=== PATIENT | male | born 1930 | race Caucasian/White ===

== ENCOUNTER 2016-12-24 10:57 | Inpatient (IN) ==
[2016-12-24 11:30] LABS: MANUAL DIFF NEEDED? NO
[2016-12-24 11:31] LABS: BASO% 0.5 % (0.0-0.8); EOS# 0.09 X1000 (0.0-0.7); EOS% 0.7 % (0.0-10.0); HEMATOCRIT 28.2 % (42.0-52.0); HEMOGLOBIN 8.8 g/dL (14.0-18.0); IMM GRAN# 0.04 X1000 (0.0-0.04); IMM GRAN% 0.3 % (0.0-0.5); LYMPH# 1.12 X1000 (1.2-3.4); LYMPH% 8.2 % (20.5-51.1); MCH 29.2 PG (27-31); MCHC 31.2 g/dL (33-37); MCV 93.7 FL (81-99); MONO% 6.6 % (1.7-9.3); MPV 9.1 FL (7.4-10.4); NEUT% 83.7 % (42.2-75.2); PLT 420 X1000 (130-400); RBC 3.01 XMIL (4.7-6.1)
--- NOTE | 2016-12-24 12:20 | Diag Imaging Result Document ---
PROCEDURE NAME: FLAT/UPRIGHT ABD/1 VIEW CHEST - 12/24/2016 FRONTAL CHEST X-RAY AND TWO VIEWS OF THE ABDOMEN: COMPARISON: None. FINDINGS: There are sternotomy wires. Lung volumes are low. There is some patchy atelectasis or infiltrate in the lateral left costophrenic angle. Otherwise, the lungs are clear. There are surgical clips in the prostate bed. No bowel obstruction or free air. No abnormal calcifications. There is abnormal sclerosis of the right femoral head. No fracture or dislocation. IMPRESSION: 1. Trace atelectasis or infiltrate in the lateral left lung base. 2. Sclerosis in the right femoral head. This suggests avascular necrosis here. No fracture or complication.
[2016-12-24 12:23] LABS: AGAP 10; ALBUMIN 3.5 g/dL (3.5-5.0); ALKALINE PHOSPHATASE 69 U/L (32-122); AMYLASE 49 U/L (20-200); BUN 30 mg/dL (8-22); CHLORIDE 100 mmol/L (98-107); COSMO 281; GOT 18 U/L (10-34); GPT 11 U/L (10-44); LIPASE 42 U/L (13-60); MAGNESIUM 2.2 mg/dL (1.5-2.7); POTASSIUM 4.5 mmol/L (3.5-5.1); SODIUM 137 mmol/L (136-145); TCO2 26 mmol/L (25-35)
[2016-12-24 12:30] LABS: CALCIUM 12.2 mg/dL (8.8-10.2)
[2016-12-24] MEDS ORDERED: NS 1,000 ML IV ONE (12:42)
[2016-12-24] MEDS ORDERED: LASIX IV ONE (12:42)
--- NOTE | 2016-12-24 13:18 | PROVIDER DOCUMENTATION ---
This chart was entered by Svitlana Spivey Scribe, acting as scribe for Wesley Harris MD. HPI-General Adult - General Chief Complaint: Constipation Stated Complaint: WEKNESS Time Seen by Provider: 12/24/16 11:05 Source: patient, family Allergies/Adverse Reactions: Patient Allergies Allergy/AdvReac Type Severity Reaction Status Date / Time No Known Allergies Allergy Verified 12/24/16 11:06 Home Medications: Home Medication List Medication Instructions Recorded Confirmed Last Taken Type Unobtainable [Home Meds 12/24/16 12/24/16 Unknown History Unobtainable] - History of Present Illness -Gen Adult Nature of Presenting Problems: Pt is a 86 yom presents to er with as historian reports multiple complaints. Complains of fatigued,weakness, poor appetite since Wednesday and constipation since Wednesday. Reports been giving Boost. 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 Reports pt complains of constant right flank pain. Location of Pain/Injury: reports: generalized Severity: reports: moderate Onset/Duration: reports: last week Timing: reports: still present Similar Symptoms Previously?: No Recently seen or treated by another doctor?: Yes Review of Systems - Adult - REVIEW OF SYSTEMS - ADULT Constitutional: reports: fatique. denies: chills, night sweats, weight gain, weight loss Eyes: reports: no symptoms reported Ears, Nose, Mouth & Throat: denies: ear pain, sinus problem, throat pain Cardiovascular: denies: chest pain, irregular heart rate, orthopnea, syncope Respiratory: denies: cough, shortness of breath, wheezing Gastrointestinal: reports: abdominal pain, constipation, poor appetite. denies : diarrhea, nausea, vomiting Genitourinary: reports: flank pain. denies: dysuria, discharge, frequency, frequent UTI's, hematuria, hesitency, incontinence, urinary retention, urgency Musculoskeletal: reports: muscle weakness. denies: bone pain, back pain, joint pain, joint swelling, neck pain Integumentary: denies: hives, itching, mole changes, nail changes, skin sores/ ulcer, skin thickening Neurological: denies: ataxia, numbness, paresthesia, seizure, slurred speech, syncope, tremors Psychiatric: reports: no symptoms reported Endocrine: reports: no symptoms reported Hematologic/Lymphatic: reports: no symptoms reported Allergic/Immunologic: reports: no symptoms reported All Other Systems: Reviewed and Negative Past History - Adult - PAST MEDICAL HISTORY-ADULT Review of Records: reports: Nursing Assessment Review, Medications Reviewed Major Childhood Illnesses: reports: denies history Cardiovascular: reports: HTN, other (cardiac valve) - IMMUNIZATION STATUS Childhood Immunizations: See Nurse Assessment Flu Vaccine: See Nurse Assessment - FAMILY HISTORY Family History: reviewed, not pertinent - SOCIAL HISTORY Smoking: denies Physical Exam-General - PHYSICAL EXAM-ADULT Initial Vital Signs Reviewed: Yes - CONSTITUTIONAL General Appearance: alert, lethargic. negative: appears well - EYES Eyes: PERRL/EOMI - HEAD, EARS, NOSE, MOUTH & THROAT HENMT: moist mucous membranes, pharynx normal - NECK Neck: non-tender - RESPIRATORY Respiratory: chest non-tender, lungs clear, normal breath sounds, no pleuratic chest pain, no respiratory distress, no accessory muscle use - CARDIOVASCULAR Cardiovascular: regular rate, rhythm - GASTROINTESTINAL (ABDOMEN) Abdominal Exam: non tender, soft, no organomegaly, no pulsatile mass - GENITOURINARY Rectal Exam: black stool - MUSCULOSKELETAL Back Exam: normal inspection, no vertebral tenderness, CVA tenderness (ttp) Extremity: normal range of motion, non-tender, pedal edema (1+ edema) - SKIN Integumentary: normal turgor, warm/dry, pallor - PSYCHIATRIC Psych/Mental Status: normal mood/affect, normal thought content, normal thought process, oriented x 3 Progress - PLAN OF CARE/RESULTS Progress/Plan/Lab Results: Vital Signs - 8 hr 12/24/16 11:00 Temperature 98 F Pulse Rate 81 Respiratory Rate 18 Blood Pressure 144/63 O2 Sat by Pulse Oximetry 98 Orders Category Date Time Status Saline Loc DIRECTED Care 12/24/16 11:11 Active NPO Diet 12/24/16 11:11 Active FLAT/UPRIGHT ABD/1 VIEW CHEST [RAD] Stat Exams 12/24/16 11:11 Ordered AMYLASE [CHEM] Stat Lab 12/24/16 11:11 Ordered CBC WITH ELECTRONIC DIFF [HEME] Stat Lab 12/24/16 11:11 Ordered COMPREHENSIVE METABOLIC PANEL [CHEM] Stat Lab 12/24/16 11:11 Ordered LIPASE [CHEM] Stat Lab 12/24/16 11:11 Ordered MAGNESIUM [CHEM] Stat Lab 12/24/16 11:11 Ordered PRO B-NATRIURETIC PEPTIDE Stat Lab 12/24/16 11:[address] W/POSS RFLX CULT [URINALYSIS] Stat Lab 12/24/16 11:11 Uncollected Result Diagrams: 12/24/16 11:25 12/24/16 11:25 - XRAY 1 XRAY: Bilateral XRAY Study: Chest Impression: Abnormal (trace atelectasis or infiltrate in the lateral left lung base; sclerosis in the right femoral head. this suggest avascular necrosis. no fx or complication) - CT/MRI 1 CT Study: Abdomen, Pelvis, other (pulm arteries) Impression: Abnormal (large mid abdominal masses, the left compressiong the IVC and invading the psoas. Lympohoma, GIST or metastatic disease would be in the differential. LLL and Lingular atelecasis no pe.) 2 CT Study: Head Impression: Abnormal (chronic ischemic changes. NAD) - CONSULTS/PCP/HOSPITALIST Notification Time Discussed: 14:32 Reason/Comments: Admit to Dr. Mathews (to [facility]) Departure - Departure Time of Disposition Decision: 14:15 DIAGNOSIS: Anemia Qualifiers: Anemia type: unspecified type Qualified Code(s): D64.9 - Anemia, unspecified GI bleed Qualifiers: GI bleed type/associated pathology: melena Qualified Code(s): K92.1 - Melena Abdominal mass Qualifiers: Abdominal location: generalized Qualified Code(s): R19.07 - Generalized intra- abdominal and pelvic swelling, mass and lump Disposition: ADMITTED INPATIENT 09 Certified Medical Emergency: Emergent Condition: Stable Referrals and Follow-Ups: Omar Neilsen MD [Primary Care Provider] - This chart was documented by the indicated scribe, (Svitlana Spivey Scribe) and accurately reflects the services I performed and decisions made by me, Wesley Harris MD, as attested by the provider's signature.
--- NOTE | 2016-12-24 13:35 | Diag Imaging Result Document ---
PROCEDURE NAME: HEAD W/O CONTRAST - 12/24/2016 CT OF THE HEAD WITHOUT CONTRAST: FINDINGS: There are calcifications in the vertebral and internal carotid arteries bilaterally. There are calcifications in the globus pallidus bilaterally. There are patchy lucencies in the periventricular and subcortical white matter of both hemispheres. There is no evidence of bleed, mass effect, or abnormal extra-axial fluid collection. There are no acute bony abnormalities. The paranasal sinuses are clear. IMPRESSION: Chronic microvascular changes. No evidence of acute intracranial disease.
[2016-12-24 14:07] LABS: BILIRUBIN URINE NEGATIVE (NEGATIVE); BLOOD URINE NEGATIVE (NEGATIVE); CLARITY CLEAR (CLEAR); COLOR YELLOW; GLUCOSE URINE NEGATIVE (NEGATIVE); LEUKOCYTES URINE TRACE (NEGATIVE); NITRITE URINE NEGATIVE (NEGATIVE); PH URINE 6.5; PROTEIN URINE TRACE mg/dL (NEGATIVE); SP GRAVITY URINE 1.015; UROBILINOGEN URINE NORMAL
--- NOTE | 2016-12-24 14:11 | Diag Imaging Result Document ---
PROCEDURE NAME: ABD/PELVIS/PULM ARTERIES - 12/24/2016 CT OF THE CHEST WITH INTRAVENOUS CONTRAST: FINDINGS: There are no filling defects in the pulmonary arteries. There is apparent atelectasis versus bronchopneumonia in the left lower lobe and to some extent in the lingula. There are some scattered calcified granulomata. There are apparent cysts in the liver. There is no evidence of significant adenopathy or abnormal fluid collections. IMPRESSION: No evidence of pulmonary emboli. Atelectasis as described. CT OF THE ABDOMEN WITH INTRAVENOUS CONTRAST AND CLARITY: FINDINGS: There are multiple apparent cysts in the liver which are presumably congenital. The spleen is unremarkable with a few granulomata. The adrenal glands are not enlarged. The kidneys are without evidence of hydronephrosis. There is a lobulated soft tissue mass which engulfs the inferior vena cava just below the level of the renal veins and abuts the abdominal aorta over 180 degrees of its circumference on the right. There are a number of periaortic nodes separate from this seen on both sides. This mass is at least 12.7 cm in diameter and compresses several adjacent small bowel loops. It is also in contact with the head of the pancreas. This does not appear to be arising from the pancreas. In superior/inferior dimension, it is at least 10.4 cm. This may invade the right psoas muscle. In addition, there is a 2nd soft tissue mass in the mesentery on the left with somewhat heterogeneous density and with some large feeding vessels seen anteriorly. This measures 7.9 x 6.7 x 8 cm and is slightly more rounded in contour than the right- sided mass. It also slightly denser and more uniformly enhancing. CT OF THE PELVIS WITH INTRAVENOUS CONTRAST: FINDINGS: There is diverticulosis in the sigmoid colon without evidence of active diverticulitis. There is some presacral edema, and there may be a small amount of free fluid. There has been previous prostatectomy. The urinary bladder is not distended. No significant adenopathy is present. There is some sclerotic density in the right femoral head. This may be due to previous osteonecrosis. There are degenerative changes in the lumbar spine. There has been previous sternotomy. IMPRESSION: Bilateral soft tissue masses in the abdomen as described. This may be a result of metastatic adenopathy but the possibility of a primary gastrointestinal stromal tumor or tumors or even lymphoma cannot be excluded. This would be an unusual presentation of metastatic prostate carcinoma, however, it cannot be entirely excluded.
[2016-12-24 14:12] LABS: URINE CULTURE PL NEEDED? YES; URINE EPITHELIAL CELLS <10 /HPF (<10); URINE SOURCE CLEAN CATCH; URINE WBC <10 /HPF (<10)
[2016-12-24 14:16] LABS: OCCULT BLOOD 1 POSITIVE (NEGATIVE)
--- NOTE | 2016-12-24 17:06 | HISTORY AND PHYSICAL ---
PRIMARY CARE PHYSICIAN: Dr. Omar Nielsen. CHIEF COMPLAINT: Abdominal pain, constipation. HISTORY OF PRESENT ILLNESS: This is an 86-year-old male with a history of hypertension who presents complaining of fatigue, weakness, poor appetite for 6 days, and constipation for 3 days, along with right flank pain that radiates around to his right lower quadrant. He is nonspecific regarding any alleviating or aggravating factors. He denies fever, chills, night sweats, vomiting, diarrhea, constipation. He does state that he has been seen by his primary care physician twice last week as well as his atmospheric physicist and urologist with no reason for this pain found. He was found to have a white count of 13.63, with a hemoglobin of 8.[address] revealed atelectasis versus bronchopneumonia in the left lower lobe. PAST MEDICAL HISTORY: Hypertension. Heart valve replacement. Prostate cancer. PAST SURGICAL HISTORY: Valve replacement. Prostatectomy. SOCIAL HISTORY: He denies alcohol, tobacco, or illicit drug use. ALLERGIES: No known drug allergies. HOME MEDICATIONS: will bring medications to the hospital and a list of may be obtained. REVIEW OF SYSTEMS: A 14 point review of systems is discussed with the patient with pertinent positives being stated in the HPI. He denied chest pain, palpitations, dizziness, syncope, any black or bloody vomitus, black or bloody stools, shortness of breath, PND, orthopnea, diarrhea, nausea, vomiting, hematuria, dysuria. PHYSICAL EXAMINATION: GENERAL: This is an 86-year-old man who is lying in the bed, in no distress. VITAL SIGNS: Blood pressure is 134/74, with a heart rate of 85, respirations are 18, temperature is 98 degrees with oxygen saturations of 98% on room air. HEENT: Head is normocephalic, atraumatic. Pupils equal, round, react to light. EOMs are intact. Sclerae are anicteric. Mucous membranes are moist. NECK: Supple with trachea midline. CARDIOVASCULAR: Regular rate and rhythm. S1 and S2 appreciated. PULMONARY: Breath sounds are clear with no increased work of breathing noted. GASTROINTESTINAL: Abdomen is soft, nontender, nondistended, with bowel sounds in all 4 quadrants. EXTREMITIES: No clubbing or cyanosis. He does have trace lower extremity edema. Pulses palpable x4. NEUROLOGIC: He is alert and oriented. DIAGNOSTIC DATA: WBC is 13.6, with hemoglobin 8.8, hematocrit 28.2, and platelets of 420,000. Sodium is 137, potassium 4.5, BUN 30, creatinine 1, with a glucose of 120. Calcium is 12.2. Occult stool is positive. Radiology: Abdominal x-ray reveals trace atelectasis or infiltrate in the lateral left lung base, sclerosis to the right femoral head suggesting avascular necrosis. No fracture or complication. CT of the abdomen and pelvis revealed no evidence of pulmonary embolism, atelectasis in the left lower lobe versus bronchopneumonia. CT of the abdomen and pelvis revealed bilateral soft tissue masses in the abdomen, one which engulfs the inferior vena cava just below the level of the renal veins and abuts the abdominal aorta over 180 degrees of its circumference on the right, with a number of periaortic nodes on both sides. The mass is 12.7 cm in diameter and compresses several adjacent small-bowel loops. It is also in contact with the head of the pancreas although it does not seem to appear arising from the pancreas. It may invade the right psoas muscle. There is a 2nd soft tissue mass in the mesentery on the left with somewhat heterogeneous density, with some large feeding vessels seen anteriorly. It measures 7.9 x 6.7 x 8 cm. ASSESSMENT AND PLAN: 1. Left lower lobe atelectasis versus bronchopneumonia. We will obtain blood cultures. We will give Levaquin. 2. Leukocytosis. As stated above, blood cultures will be obtained, urine culture is pending. 3. Bilateral soft tissue masses in the abdomen. We will get Surgery evaluation. 4. Hypercalcemia. 5. Anemia. The patient does have guaiac-positive stools. We have no labs to refer to other than labs in 2013. We will trend hemoglobin and hematocrit. 6. History of prostate cancer status post prostatectomy. Aware. This is followed by Dr. Wright. 7. Further treatment pending hospital course. Dictated by SADIQ Mathew for Russell Mathews MD cc: SADIQ Mathew MD
[2016-12-24] MEDS ORDERED: ZOFRAN ONE (17:16)
[2016-12-24] MEDS ORDERED: MORPHINE ONE (17:16)
[2016-12-24] MEDS ORDERED: ZOFRAN IV ONE (17:22)
[2016-12-24] MEDS ORDERED: MORPHINE IV ONE (17:22)
[2016-12-24] MEDS: LEVAQUIN 500 MG/D5W 500 MG/100 ML IVPB IV SCH (23:02)
[2016-12-24] MEDS ORDERED: ZOFRAN IV PRN (23:16)
[2016-12-25 06:34] LABS: MANUAL DIFF NEEDED? NO
[2016-12-25 06:45] LABS: BASO% 0.3 % (0.0-0.8); EOS# 0.04 X1000 (0.0-0.7); EOS% 0.3 % (0.0-10.0); HEMATOCRIT 27.4 % (42.0-52.0); HEMOGLOBIN 8.6 g/dL (14.0-18.0); IMM GRAN# 0.04 X1000 (0.0-0.04); IMM GRAN% 0.3 % (0.0-0.5); LYMPH# 1.44 X1000 (1.2-3.4); LYMPH% 10.4 % (20.5-51.1); MCH 29.7 PG (27-31); MCHC 31.4 g/dL (33-37); MCV 94.5 FL (81-99); MONO# 0.88 X1000 (0.11-0.59); MONO% 6.3 % (1.7-9.3); MPV 9.8 FL (7.4-10.4); NEUT% 82.4 % (42.2-75.2); PLT 434 X1000 (130-400)
[2016-12-25 06:55] LABS: AGAP 8; ALBUMIN 3.3 g/dL (3.5-5.0); ALKALINE PHOSPHATASE 65 U/L (32-122); BUN 37 mg/dL (8-22); CALCIUM 11.8 mg/dL (8.8-10.2); CHLORIDE 97 mmol/L (98-107); COSMO 285; GOT 16 U/L (10-34); GPT 10 U/L (10-44); SODIUM 138 mmol/L (136-145); TCO2 33 mmol/L (25-35); TOTAL BILIRUBIN 0.32 mg/dL (0.20-1.00); TOTAL PROTEIN 7.2 g/dL (6.3-8.3)
--- NOTE | 2016-12-25 14:45 | PROGRESS NOTE ---
DATE: 12/25/2016 This is an 86-year-old with a history of hypertension presented with complaint of fatigue and weakness, poor appetite for six days and some constipation for 3 days along with right flank pain. It radiates around his right lower quadrant. He is nonspecific regarding his alleviating and aggravating factors. Denies any fever or chills or sweats, vomiting, diarrhea or constipation. He does state that he has been seen by his primary care physician twice last week and his movie machine operator and urologist trying to look for reasons for pain but nothing was found. He was [place] [address], hemoglobin was 8.8 and hematocrit 28. Abdominal CT revealed atelectasis versus bronchopneumonia in the left lower lobe. PAST MEDICAL HISTORY: Again hypertension and heart valve replacement. I think it was a tissue valve aortic valve and prostatic cancer. He was noted to have leukocytosis, bilateral soft tissue masses noted in the abdomen on CAT scan. Review of his CT of abdomen and pelvis that was done yesterday, bilateral soft tissue masses in the abdomen may be result of metastatic adenopathy but possibility of primary gastrointestinal stromal tumor or tumor of even lymphoma could not be excluded and this would be an unusual presentation metastatic prostate carcinoma but cannot be entirely excluded. There were multiple apparent cyst in the liver which presumably are congenital. The spleen was unremarkable, a few granulomata. The adrenal glands were not enlarged. The kidneys are without evidence of hydronephrosis. There is a lobulated soft tissue mass which engulfs the inferior vena cava just below the level of the renal veins and abuts the abdominal aorta over 180 degrees of circumference on the right. There is a number of periaortic nodes separate from this seen on both sides. The mass is at least 12.7 cm in diameter and compresses several adjacent small loops also on contact with the head of the pancreas. This does not appear to be arising from the pancreas and superior to inferior dimension is at least 10.4 cm. This may invade the right psoas muscle. In addition, there is a 2nd soft tissue mass in the mesentery on the left with so much heterogeneous density and with some large feeding vessels seen anteriorly which measures 7.9 x 6.7, slightly more rounded in contour. Patient is comfortable and he would like to eat. He is hungry. Temp 98.6 degrees, pulse 92, respirations 20, blood pressure 126/49. The pupils are equal and round. Lungs: Are clear in all lung ring. Cardiovascular: Regular rhythm and rate without murmur or S3. Abdomen: Soft. Skin: Is warm and dry. LAB: White count 23927, hematocrit 27, platelet count 434,000. Sodium 138, potassium 5.0, chloride 97, bicarb 33, BUN 33, creatinine 1.0. Calcium was 12.2 when he came in, 11.8 at the present time with an albumin of 3.3. Urine was unremarkable. There was 2+ bacteria and negative glucose. CT of the head without contrast, chronic microvascular changes. No evidence of acute intracranial disease. Abdomen x-ray trace atelectasis or infiltrate in the lateral left lung base, sclerosis of the right femoral head suggestive of avascular necrosis. No fracture or complications. ASSESSMENT AND PLAN: 1. Left lower lobe atelectasis versus bronchopneumonia. Continue IV antibiotics. He is on Levaquin. 2. Leukocytosis, waiting on blood cultures. 3. Bilateral soft tissue masses in the abdomen. Surgery to evaluate, Dr. Meneses to see. 4. Hypercalcemia. Aware. 5. Anemia. The patient does have guaiac-positive stools. He has had no labs to refer to since 2013 that we can find and he has the noted anemia with an MCV of 94, white blood cell count borderline elevated. My plan is to give him some IV fluids and start him on a regular diet. We may end up giving him some Clinimix but we will hydrate him and watch his calcium. Ask Surgery to evaluate. We may need to try get a piece of tissue with a needle biopsy. We will discuss with Dr. Meneses. We will watch the hemoglobin and hematocrit and transfuse as necessary. Appears to be hemodynamically stable at this point. cc: Arash Fatima MD
[2016-12-25] MEDS: CLINIMIX E 4.25%-5% SOLUTION 1,000 ML IV SCH (14:50)
[2016-12-25] MEDS: LEVAQUIN 500 MG/D5W 500 MG/100 ML IVPB IV SCH (17:35)
--- NOTE | 2016-12-25 20:32 | CONSULTATION ---
DATE OF CONSULTATION: 12/25/2016 HISTORY OF PRESENT ILLNESS: This is an 86-year-old male who is admitted to the hospitalist service with vague back pain, paleness, general malaise and fatigue and decreased appetite. Did have episode of vomiting several days ago. He was checked for Hemoccult blood for anemia and it was positive. says he has had some melena as well but most concerning is lower back pain. He has got a history of prostate cancer status post prostatectomy. CT scan his abdomen, pelvis showed some retroperitoneal lesions within the right encased the vena cava left that is near ligament of Treitz in both the pancreas and the jejunum and duodenum junction. PAST MEDICAL HISTORY: 1. History of prostate cancer. 2. Hypertension. 3. 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 PAST SURGICAL HISTORY: 1. Bowel replacement. 2. Prostatectomy robotically. SOCIAL HISTORY: Is . Denies tobacco, alcohol or drugs. REVIEW OF SYSTEMS: Ten point negative except what is mentioned in HPI. PHYSICAL EXAMINATION: Vital Signs: Temperature is 98.9 degrees, pulse 95, blood pressure 126/47, oxygen saturation 92% on room air. General: He is elderly appearing, chronically ill appearing white gentleman quite pale but there is no scleral icterus. Cardiovascular: Normal rate, regular rhythm. Pulmonary: No increased work of breathing. Abdomen: Soft, nontender, nondistended. Integument: Warm, dry. Extremities: There is no lower extremity edema. DIAGNOSTIC DATA: White count 13, hematocrit has been stable, was 28 yesterday, 27 today, platelets 434,000. Sodium 138, potassium 5.0, chloride 97, CO2 33, BUN 37, creatinine 1.0, glucose is 101, calcium is elevated at 11.8, 12.2 yesterday, bilirubin is normal at 0.32, transaminases are normal, alkaline phosphatase normal, amylase, lipase were normal yesterday. Urinalysis negative for nitrites or leukocytes. Stool was positive for Hemoccult blood. CT scan of the abdomen, pelvis obtained on 12/24/2016 shows bilateral soft tissue masses in the abdomen could be metastatic adenopathy but GIST tumor, lymphoma cannot be excluded, cannot rule out metastatic prostate cancer. ASSESSMENT/PLAN: 86-year-old male with history of prostate cancer now with 2 symptomatic retroperitoneal masses, also some evidence of an upper gastrointestinal bleed although hematocrit seems stable and unclear etiology. Regarding the masses, would recommend percutaneous biopsy CT- guided of the lesions in question. I do not see any hypertension and think that these are functional tumors and does not give any history of this either. Suspect lymphoma or prostate origin to this. I do not see any obvious bony metastasis but given his back pain this is a worry with history of prostate cancer. The left-sided lesion does appear to enhance and is adjacent to a loop of small bowel, is possible that this is gastrointestinal stromal tumor associated with this but I do not see any evidence of obstruction. Will follow up his biopsy results. If his hematocrits remain stable may be beneficial ultimately to rule out peptic ulcer disease or some other intraluminal neoplasm as a source of his melena and anemia but would make this lower on the differential. Discussed this with the hospitalist service and the family. Will continue follow along but no plans for surgical intervention at this time. cc: Arianna Meneses MD
[2016-12-25] MEDS: TYLENOL PO PRN (21:36)
[2016-12-25] MEDS: DEMEROL IV PRN (22:24)
[2016-12-26] MEDS: CLINIMIX E 4.25%-5% SOLUTION 1,000 ML IV SCH ×3 (02:27→22:43)
[2016-12-26 07:20] LABS: AGAP 10; ALBUMIN 2.9 g/dL (3.5-5.0); ALKALINE PHOSPHATASE 54 U/L (32-122); BUN 40 mg/dL (8-22); CHLORIDE 99 mmol/L (98-107); COSMO 284; GOT 14 U/L (10-34); GPT 8 U/L (10-44); MAGNESIUM 2.2 mg/dL (1.5-2.7); SODIUM 137 mmol/L (136-145); TCO2 28 mmol/L (25-35); TOTAL BILIRUBIN 0.28 mg/dL (0.20-1.00); TOTAL PROTEIN 6.1 g/dL (6.3-8.3)
[2016-12-26 07:42] LABS: CALCIUM 11.9 mg/dL (8.8-10.2)
--- NOTE | 2016-12-26 12:28 | PROGRESS NOTE ---
DATE: 12/26/2016 Mr. Tabor feels about the same, uncomfortable. Not eating much but he did eat a little bit of breakfast. His is at bedside. He remains afebrile.Vital signs: Temperature 97.7 degrees, pulse 95, respirations 20, blood pressure 144/62. HEENT: Pupils are equal, round. Lungs: Are clear in all lung ring. Cardiovascular: Regular rhythm and rate without murmur or S3. Abdomen: Soft. Skin: Is warm and dry. Urine output, looks like it is 1200 mL. LAB: Reviewed from this morning, white count 29718. Review from the white count [id number]. Hematocrit was 27, hemoglobin 8.6. So we will check some more blood work today. Chemistry: Sodium 137, potassium 5.0, chloride 99, BUN 40, creatinine 1.0, calcium was 11.9 with an underlying albumin at 2.9. ASSESSMENT AND PLAN: 1. 86-year-old with a history of prostate cancer now with 2 symptomatic retroperitoneal masses. He also has suggestion of upper GI bleed. I will follow hematocrit and hemoglobin. Dr. Caro to see on Wednesday. Also we will want to pursue tissue needle biopsy on Wednesday. We will continue fluids. 2. Hypercalcemia. I want to make sure he is hydrated. If you correct his calcium for his albumin he has a pretty good level so we will continue Clinimix and check his calcium again today and in the morning. 3. I have him on some Levaquin. Not sure we need to continue that right now. He did have some left lower lobe atelectasis, questionable bronchopneumonia so I think I am going to leave that alone. He has borderline leukocytosis so continue present orders. Check electrolytes, blood work and CBC today and also again in the morning. cc: Arash Fatima MD
[2016-12-26 12:56] LABS: BASO% 0.2 % (0.0-0.8); EOS# 0.02 X1000 (0.0-0.7); EOS% 0.1 % (0.0-10.0); HEMATOCRIT 25.6 % (42.0-52.0); IMM GRAN# 0.06 X1000 (0.0-0.04); IMM GRAN% 0.4 % (0.0-0.5); LYMPH# 1.07 X1000 (1.2-3.4); LYMPH% 7.6 % (20.5-51.1); MANUAL DIFF NEEDED? YES; MCH 29.5 PG (27-31); MCHC 31.3 g/dL (33-37); MCV 94.5 FL (81-99); MONO# 0.48 X1000 (0.11-0.59); MONO% 3.4 % (1.7-9.3); MPV 9.6 FL (7.4-10.4); NEUT% 88.3 % (42.2-75.2); PLT 423 X1000 (130-400); RBC 2.71 XMIL (4.7-6.1)
[2016-12-26 13:03] LABS: CALCIUM 12.3 mg/dL (8.8-10.2)
[2016-12-26 13:04] LABS: AGAP 12; ALBUMIN 3.3 g/dL (3.5-5.0); ALKALINE PHOSPHATASE 58 U/L (32-122); BUN 45 mg/dL (8-22); CHLORIDE 95 mmol/L (98-107); COSMO 284; GOT 17 U/L (10-34); GPT 11 U/L (10-44); POTASSIUM 5.3 mmol/L (3.5-5.1); SODIUM 135 mmol/L (136-145); TCO2 28 mmol/L (25-35); TOTAL BILIRUBIN 0.34 mg/dL (0.20-1.00); TOTAL PROTEIN 7.2 g/dL (6.3-8.3)
[2016-12-26 13:30] LABS: BANDS 1 % (0-1); LYMPHS 14 % (21-51); MONO 1 % (1-9)
--- NOTE | 2016-12-26 15:00 | Diag Imaging Result Document ---
PROCEDURE NAME: CHEST-2 VIEWS - 12/26/2016 CHEST X-RAY, 2 VIEWS: COMPARISON: 12/24/2016. FINDINGS: Lung volumes are severely low with some left basilar atelectasis. Heart size remains normal. IMPRESSION: No change from prior.
[2016-12-26] MEDS: LEVAQUIN 500 MG/D5W 500 MG/100 ML IVPB IV SCH (16:38)
[2016-12-26] MEDS: TYLENOL PO PRN ×2 (17:53→22:42)
[2016-12-26] MEDS: DEMEROL IV PRN (21:24)
[2016-12-27] MEDS: DEMEROL IV PRN ×2 (00:27→20:39)
[2016-12-27 06:51] LABS: BASO% 0.2 % (0.0-0.8); EOS# 0.07 X1000 (0.0-0.7); EOS% 0.6 % (0.0-10.0); HEMATOCRIT 24.1 % (42.0-52.0); HEMOGLOBIN 7.5 g/dL (14.0-18.0); IMM GRAN# 0.06 X1000 (0.0-0.04); IMM GRAN% 0.5 % (0.0-0.5); LYMPH# 1.07 X1000 (1.2-3.4); LYMPH% 8.5 % (20.5-51.1); MANUAL DIFF NEEDED? YES; MCH 29.5 PG (27-31); MCHC 31.1 g/dL (33-37); MCV 94.9 FL (81-99); MONO# 0.77 X1000 (0.11-0.59); MONO% 6.1 % (1.7-9.3); NEUT% 84.1 % (42.2-75.2); PLT 397 X1000 (130-400); RBC 2.55 XMIL (4.7-6.1)
[2016-12-27 07:03] LABS: AGAP 15; ALBUMIN 3.2 g/dL (3.5-5.0); ALKALINE PHOSPHATASE 54 U/L (32-122); BUN 49 mg/dL (8-22); CALCIUM 11.5 mg/dL (8.8-10.2); CHLORIDE 96 mmol/L (98-107); COSMO 282; GOT 19 U/L (10-34); GPT 11 U/L (10-44); SODIUM 134 mmol/L (136-145); TCO2 23 mmol/L (25-35); TOTAL BILIRUBIN 0.26 mg/dL (0.20-1.00); TOTAL PROTEIN 5.9 g/dL (6.3-8.3)
[2016-12-27] MEDS: CLINIMIX E 4.25%-5% SOLUTION 1,000 ML IV SCH ×2 (07:34→17:47)
--- NOTE | 2016-12-27 08:28 | PROGRESS NOTE ---
DATE: 12/27/2016 SUBJECTIVE: He is comfortable. He states he feels pretty good. He asked again what the plan was. I explained that we are going to try and do a needle biopsy on him tomorrow. Dr. Caro is going to see him. He is not complaining of any belly pain. He is eating some, breathing comfortably. PHYSICAL EXAMINATION: Vital Signs: Temperature 97.6 degrees, pulse 90, respirations 12, blood pressure 152/53. HEENT: Pupils are equal and round. Lungs: Clear in all lung ring. Cardiovascular Examination: Regular rhythm and rate without murmur or S3. Abdomen: Soft. Skin: Warm and dry. Is and Os: Urine output was well over a liter. LAB: From this morning, white count of 12,660, hematocrit 24, platelet count 397,000, predominantly neutrophils. Chemistry: Sodium 134, potassium 5, chloride 96, BUN 49, creatinine 0.9. His creatinine has come down a little bit. ASSESSMENT AND PLAN: 1. History of prostate cancer with 2 symptomatic retroperitoneal masses, suggestion of upper gastrointestinal bleed. Plan is to do a needle biopsy tomorrow, CT guided. I asked Dr. Caro to see and work up upper gastrointestinal bleed. 2. Upper gastrointestinal bleed with history of melena. Dr. Caro to see in the morning. 3. Hypercalcemia. Continue to give intravenous fluids. Calcium down a little bit from yesterday, 11.5, adjusted for albumin of 3.2. We will continue present fluids. 4. Review of his orders. I do not see any change. He is on Levaquin 500 mg every 24 hours. Getting Clinimix at 100 mg daily. He gets Demerol as needed for pain at a low dose 25 mg. He did have some left lower lobe atelectasis. We will continue the Levaquin with questionable pneumonia. cc: Arash Fatima MD
[2016-12-27 08:46] LABS: BANDS 2 % (0-1); LYMPHS 8 % (21-51); MONO 4 % (1-9)
[2016-12-27 08:47] LABS: HYPOCHROM 1+
--- NOTE | 2016-12-27 15:04 | PROGRESS NOTE ---
DATE: 12/27/2016 SUBJECTIVE: Feels okay. No real abdominal pain. No evidence GI bleeding. OBJECTIVE: Vital signs: No fevers. Heart rate is in the 90s. Blood pressure 145/60, O2 saturation 98% on room air. General: He is alert, oriented. He is somewhat pale. Abdomen: Soft, nontender, nondistended with no palpable masses. LABORATORY: Hematocrit is down slightly at 24, but it was 25 yesterday. Calcium remains elevated. Creatinine is normal. ASSESSMENT/PLAN: An 86-year-old male with retroperitoneal masses of unclear etiology. He does have a history of prostate cancer. He also has some heme positive stools and melena on admission. I do not see any evidence of a brisk gastrointestinal bleed and we do not know the etiology of these masses yet. Plans for CT-guided biopsy this week. We will follow these results and make further decisions. Also plans for upper endoscopy by Dr. Caro this week as well. We will continue to follow. cc: Arianna Meneses MD
[2016-12-27] MEDS: LEVAQUIN 500 MG/D5W 500 MG/100 ML IVPB IV SCH (16:36)
[2016-12-28] MEDS: CLINIMIX E 4.25%-5% SOLUTION 1,000 ML IV SCH ×3 (02:48→17:32)
[2016-12-28] MEDS: TYLENOL PO PRN ×3 (02:50→20:37)
--- NOTE | 2016-12-28 10:05 | PROGRESS NOTE ---
DATE: 12/28/2016 SUBJECTIVE: He is comfortable. His son was at the bedside. The plan is to try and get a CT guided needle biopsy of retroperitoneal mass. He did get a little food down yesterday. Breathing is comfortable. OBJECTIVE: Vital signs: Temp 98.7 degrees, pulse 101, respirations 18, blood pressure 160/64. HEENT: Pupils are equal and round. Lungs: Clear in all lung ring. Cardiovascular: Regular rhythm and rate without murmur or S3. Abdomen: Soft. Skin: Warm and dry. Intake and output: Urine output was over 4 L. LAB: Reviewed from yesterday. Hematocrit is stable at 23, hemoglobin 7.5. Sodium 134, potassium 5.0, chloride 96, bicarb 23, BUN 49, creatinine 0.9, calcium was 11.5 with an albumin of 3.2. ASSESSMENT AND PLAN: Abdominal mass, retroperitoneal. Appears to have 2 of them, on the right and left side. Dr. Meneses is following. The plan is to try and get a needle biopsy today. He does have a history of prostate cancer. He has a history of melena with positive heme-positive stools. Dr. Caro is supposed to see him today. I suspect he will need an EGD. Also family asked about possible involvement of oncology depending on the results. He is eating a little bit more. General weakness is still there. Note the hypercalcemia. Will continue IV fluids. cc: Arash Fatima MD
[2016-12-28 11:19] LABS: INR 0.96; PROTIME 10.1 Seconds (9.2-11.7); PTT 32.6 Seconds (22.0-36.0)
[2016-12-28] MEDS ORDERED: NS 500 ML IV SCH (11:28)
[2016-12-28] MEDS ORDERED: GOLYTELY PO ONE (14:00)
--- NOTE | 2016-12-28 14:24 | Diag Imaging Result Document ---
PROCEDURE NAME: BIOPSY ABDOMEN/RETROPERITON - 12/28/2016 CT GUIDED BIOPSY OF THE RIGHT RETROPERITONEAL MASS: FINDINGS: The risks and benefits of the procedure were discussed with the patient and his , including the possibility of bleeding, infection, or reaction to lidocaine. They agreed. Following sterile preparation of the skin posteriorly and administration of 1% lidocaine to the skin and deeper soft tissues, an 18-gauge coaxial Temno core biopsy needle was employed to obtain 4 cores from the mass seen anterolateral to the lumbar spine on the right. There were no immediate complications. The patient tolerated the procedure well. IMPRESSION: Successful CT guided percutaneous biopsy.
--- NOTE | 2016-12-28 19:40 | CONSULTATION ---
DATE OF CONSULTATION: 12/28/2016 HISTORY AND REASON FOR CONSULTATION: Evaluation of this patient with anemia with a history of black stools and 2 masses in the abdomen. HISTORY OF PRESENT ILLNESS: This is an 86-year-old gentleman who had been having weakness, poor appetite and constipation for the last 2 weeks. His said that he had been having weakness and poor appetite only since 2 weeks. Before that he was able to eat well and was going around his routine day-to-day activities. He was able to ambulate slowly. He developed pain in the right upper lumbar back and since then, the appetite had become quite poor. Since appetite was poor he stopped eating and that resulted in poor bowel movements. He became very constipated. Last bowel movement was about less than a week ago. At that time, the patient had black stools. He became more and more dizzy. Because of the pain, the patient was brought to the hospital and eventually got admitted. He was found to be having a hemoglobin of 8.8 and hematocrit of 28.2 and his white count was elevated. PAST MEDICAL HISTORY: 1. 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 2. Hypertension. 3. Prostate cancer. He had radical prostatectomy done about 10 years ago. The patient received some radiation after that. According to , he has been beginning to lose his memory but no formal diagnosis of dementia has been made. The patient had a negative colonoscopy about 13- [address] Fitzpatrick. PAST SURGICAL HISTORY: Aortic valve replacement, prostatectomy. SOCIAL HISTORY: He denies alcohol or tobacco use. He lives with his family. ALLERGIES: No known drug allergies. FAMILY HISTORY: Unremarkable. REVIEW OF SYSTEMS: GI: Appetite is poor but there is no nausea except on 1 occasion he had vomited once. There is no serious abdominal pain. Pain is mainly in the right upper lumbar back. The pain is not constantly present. It comes and goes. With mobility it does not actually change. The patient when he came to the hospital he had constipation present. He continues to have constipation. There was also swelling of both ankles after getting a diuretic therapy. That swelling has come down very much. The patient is quite weak and is lethargic. PHYSICAL EXAMINATION: General: The patient is alert, oriented x3. His memory is poor. Vital Signs: The temperature is 97.6 degrees, the pulse rate is 96 per minute, respiratory rate is 18, blood pressure is 144/76. He looks quite pale. Neck: Supple. There is no thyromegaly. Cardiac: Both heart sounds are heard. Rhythm is regular. I could not hear a definite murmur or valve sound from prosthetic valve. It was supposed to be a bovine valve and he has not taken any anticoagulant therapy since then. Lungs: Reveal bilateral basilar crackles especially in the bases. Abdomen: Soft, nontender. I was able to feel a vague mass in the right upper quadrant and the left lobe of the liver seems to be enlarged in the epigastric area. There is no mass on the left side. Bowel sounds are normally heard. Extremities: There are superficial varicosities present with slight pitting edema at this point. LABORATORY DATA: The WBC count yesterday was 12.6, his hemoglobin 7.5, hematocrit 24.1, the platelet count is 397,000. The pro time is 10.1, INR is 0.96, PTT is 32.6. Sodium 134, potassium 5, chloride is 96, CO2 is 23, BUN is 49, creatinine is 0.9, glucose is 109. The calcium had been elevated up to 12.3, currently is 11.2. AST is 19, ALT is 11, total bilirubin is 0.26, total protein is 5.9, albumin is 3.2, amylase and lipase are normal. CT scan of the abdomen shows multiple cysts in the liver with a few granulomata. There is a lobulated soft tissue mass which engulfs the inferior vena cava just below the level of the renal veins and abuts the abdominal aorta 180 degree of its circumference on the right. There are a number of periaortic nodes separate from this seen on both sides. This mass is about 12.7 cm in diameter and compresses several large and small bowel loops which also is in contact with the head of the pancreas but it does not arise from the pancreas, it may be invading the psoas muscle. There is a 2nd soft tissue mass in the mesentery on the left with somewhat heterogeneous density and with some large feeding vessel seen anteriorly. This measures about 7.9-6.7 in great cm slightly more rounded in the contour. CT of the pelvis shows diverticulosis of the sigmoid colon without evidence of diverticulitis. There is some preseptal edema present with a small amount of free fluid, previous prostatectomy was shown and degenerative disk disease also present. IMPRESSION: 1. Black stool, probably upper gastrointestinal bleed. 2. Chronic anemia. 3. Intraabdominal masses the nature of which is not clear. A biopsy is being done today. RECOMMENDATION: I have explained the procedure of colonoscopy and esophagogastroduodenoscopy to the patient and his son and his with benefits and risks. We will prepare for colonoscopy today and try to do it tomorrow. I have also explained to the patient and family about monitored anesthesia care and possible risks such as perforation, hemorrhage and infection. They are agreeable for that. There would want to know the cause of all these masses whether it is related to upper GI tract or the colon. It is high risk procedure but since the patient understands risks and benefits and will proceed with it. I have discussed the case with Dr. Spivey. Will give 1 unit of blood transfusion today slowly and recommend bone scan because of the possibility of metastatic prostate cancer causing hypercalcemia. cc: MD Dr. Akua Still
[2016-12-28] MEDS: LEVAQUIN 500 MG/D5W 500 MG/100 ML IVPB IV SCH (20:40)
[2016-12-28] MEDS: DEMEROL IV PRN (22:25)
[2016-12-29] MEDS: CLINIMIX E 4.25%-5% SOLUTION 1,000 ML IV SCH ×4 (03:20→18:11)
[2016-12-29] MEDS: TYLENOL PO PRN ×3 (08:50→23:50)
[2016-12-29] MEDS ORDERED: XYLOCAINE-MPF 2% ONE (09:25)
[2016-12-29] MEDS ORDERED: LR 1,000 ML ONE (09:25)
[2016-12-29] MEDS ORDERED: ANESTHESIA PB SET 88 IN 5742 ONE (09:25)
[2016-12-29] MEDS ORDERED: AMIDATE ONE (09:25)
--- NOTE | 2016-12-29 11:46 | OPERATIVE NOTE ---
PROCEDURE DATE: 12/29/2016 PROCEDURE: Esophagogastroduodenoscopy. DATE OF PROCEDURE: 12/29/2016. HISTORY AND REASON FOR THE PROCEDURE: This patient has been complaining of black stools and he had blood loss anemia. He received 1 unit of blood transfusion yesterday. The patient also has oblique navarro in the abdominal cavity to the right of midline close to possibly the upper jejunum and lower part of duodenum near the ligament of Treitz. The patient has another smaller mass on the left upper abdomen too. The suspicion is that he may have gastrointestinal stromal tumor or lymphoma. A needle biopsy of 1 of the masses was done yesterday. This procedure is undertaken to see whether there is any gastrointestinal malignancy present in the upper and lower GI tract, and the cause of the black stool. Medications were all given by anesthesiologist. Patient was monitored before, during, and after the procedure by them, and his condition remained stable. Photos taken from the antrum. SPECIMEN: None. PROCEDURE IN DETAIL: The patient was kept in the left lateral decubitus position. Bite block applied. The Olympus videoscope was introduced under direct vision after the patient was given premedications and advanced into the esophagus. The esophagus was then insufflated. The mucosa in the upper esophagus, mid esophagus, and lower esophagus appeared normal. The scope was advanced into the stomach. On entry, large amount of dark fluid was present in the stomach which appeared to be possibly altered, but on close inspection it was found to be bile reflux into the stomach which altered into a dark fluid. This fluid was aspirated and removed most of it. I have watched the area of most of the fluid. Some undigested food also was present. It appeared that there was gastric retention, but no significant bleeding was present. After removing most of the fluid except small part of it in the fundus, I inspected the stomach carefully and there were only multiple erosions present in the antrum and body of the stomach without any other lesions. There was no evidence of any lesion causing upper GI bleed, no evidence of any upper GI bleed also was present. The scope was advanced into the pylorus and into the duodenal bulb and second part of duodenum. I took the scope as far as I could go. There was no dilatation of the proximal small intestine present as far as I could see. There was the same type of bilious fluid present which was aspirated and removed, but in the duodenum only a small amount was present. There were no lesions in the duodenum. After taking all the air and fluid out, the scope was removed from the patient. Patient tolerated the procedure well. IMPRESSION: 1. 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 2. No evidence of upper gastrointestinal bleed. 3. Gastric retention probably secondary to partial obstruction in the small intestine beyond the area I could see. Patient was immediately turned over and a colonoscopy was performed. Distal 0.3 cecum. Photos taken from the cecum. SPECIMEN: None. PROCEDURE: Colonoscopy. PROCEDURE IN DETAIL: The patient was kept in the left lateral decubitus position. Rectal examination was performed. The anal canal lubricated. The Olympus videoscope was introduced in the rectum, advanced to the cecum. The patient tolerated the procedure well and bowel preparation was not good. The patient could not drink all the GoLYTELY which was given yesterday; therefore, the nurse already had called me that his stool is not clear. However an adequate examination was possible for large lesions, but a very small polyp could be missed. FINDINGS: The rectum had a lot of liquid dark stool present which was washed off with plenty of water and aspirated and removed. The rest of them came out through his anal canal; it leaked out. Then, the sigmoid had multiple diverticula present, some of them with large openings and some of them had small openings; however, I was able to navigate through the tortuous sigmoid colon after using a lot of water to clean that area and suction it out. The descending colon had multiple diverticula. The splenic flexure had a few diverticula and also the distal transverse colon had a few diverticula. All these areas were cleaned looking for large mass lesions, none were present. The transverse colon appeared to be relatively normal with some stool present, which was aspirated and removed. The hepatic flexure was normal. The ascending colon seemed to have a lot of liquid stool present which was dark in color, mostly bilious stool. The end area was cleaned, including the cecum, which had a lot of stool. I diluted the stool with water and eventually cleaned the area out. I did not see any abnormal blood vessels which would be the cause of bleeding nor any mass lesions. Air and stool as far as I could see was taken out from the patient's colon and scope was removed. The patient will still have some air and stool left, which he will be able to pass. I did not see any evidence of any lower GI bleed either. IMPRESSION: Severe diverticulosis of the left colon with no evidence of any lower gastrointestinal bleed or any lesion causing lower gastrointestinal bleed. RECOMMENDATIONS: The patient will be started on a GI soft diet. We will monitor his hemoglobin and hematocrit and wait for him for the biopsy of the abdominal mass, which might be available either this afternoon or tomorrow. I discussed the case with Dr. Fatima and explained the findings to him. cc: MD Arianna Scanlon MD Stephen A. Branning, MD
--- NOTE | 2016-12-29 12:52 | PROGRESS NOTE ---
DATE: 12/29/2016 SUBJECTIVE: Mr. Tabor is awake, alert, comfortable. Talked to Dr. Caro. Did an EGD and colonoscopy and did not find any active bleeding. Does have some gastritis. Could tell there was some biliary accumulation probably from compression from his retroperitoneal mass on the distal end of the duodenum. Still waiting on pathology from the needle biopsies. Bone scan is scheduled for today. OBJECTIVE: Vital signs: Afebrile temp 97.9 degrees, pulse 66, respirations 14, blood pressure 120/86. HEENT: Pupils are equal and round. Neck: CVP less than 6 cm. Lungs: Clear in all lung ring. Cardiovascular: Regular rhythm and rate without murmur or S3. Abdomen: Soft. Intake and output: Urine output is 2800 mL. LAB: Reviewed from the . Hematocrit was stable at 24. Electrolytes unremarkable. ASSESSMENT AND PLAN: 1. History of melena or black tarry stool. Upper GI and lower GI did not see any active bleeding. Does have some gastritis. Continue, I think, Carafate and proton pump inhibitor. 2. Chronic anemia. Aware. Hematocrit is stable. 3. Intra-abdominal retroperitoneal mass. Biopsy done; waiting on pathology. Plan is a bone scan today. 4. Orders reviewed. I do not see any change at this at this point. He is on Levaquin 500 mg daily, Demerol 25 mg q.4 hours. Fluids are keep vein open. He is swallowing liquids and eating a little bit. He is on Clinimix as well at 100 mL every hour. cc: Arash Fatima MD
--- NOTE | 2016-12-29 13:46 | Diag Imaging Result Document ---
PROCEDURE NAME: BONE SCAN, TOTAL BODY - 12/29/2016 WHOLE BODY BONE SCAN: COMPARISON: Whole body CT 12/24/2016. FINDINGS: 30.7 mCi of HDP was administered. There is normal skeletal and soft-tissue uptake. No abnormal uptake. There is an apparent right knee prosthesis. IMPRESSION: No suspicious findings seen.
[2016-12-29] MEDS ORDERED: KETAMINE (DOSE) ONE (13:53)
[2016-12-29] MEDS ORDERED: VERSED ONE (13:53)
[2016-12-29] MEDS: LEVAQUIN 500 MG/D5W 500 MG/100 ML IVPB IV SCH (19:54)
[2016-12-29] MEDS: DEMEROL IV PRN (20:33)
[2016-12-30] MEDS: LEVAQUIN 500 MG/D5W 500 MG/100 ML IVPB IV SCH (01:50)
[2016-12-30] MEDS: DEMEROL IV PRN ×4 (01:51→15:21)
[2016-12-30] MEDS: CLINIMIX E 4.25%-5% SOLUTION 1,000 ML IV SCH ×2 (05:18→14:56)
--- NOTE | 2016-12-30 09:37 | PROGRESS NOTE ---
DATE: 12/30/2016 SUBJECTIVE: Mr. Tabor is sitting up eating breakfast. Feels good. His bone scan was negative. Still waiting on pathology from the needle biopsy. OBJECTIVE: Afebrile. Temperature 97.9 degrees, pulse 96, respirations 14, blood pressure 159/72. Pupils are equal and round. CVP less than 6 cm. Lungs are clear in all lung ring. Cardiovascular: Regular rhythm and rate without murmur or S3. Abdomen is soft. Skin is warm and dry. Urine output was 2400 mL. LABORATORY: Reviewed from 12/27/2016: Calcium was 11.5 with an albumin of 3.2. Recheck electrolytes again in the morning. ASSESSMENT AND PLAN: 1. Retroperitoneal mass needle biopsy. Pathology pending. Bone scan was unremarkable. 2. Blood-loss anemia. Recent esophagogastroduodenoscopy and colonoscopy. He did not see any active bleeding. He does have some gastritis, treating. Dr. Caro following. 3. History of prostate cancer in the past, aware. Voiding okay and no complaints of pain at the present time. REVIEW OF HIS CURRENT ORDERS: He is on Levaquin 500 mg IV q. 24 hours. Getting Demerol p.r.n. pain. Clinimix IV. I think I will stop his Levaquin. Awaiting on pathology. cc: Arash Fatima MD
[2016-12-30] MEDS: TYLENOL PO PRN (21:05)
[2016-12-31] MEDS: DEMEROL IV PRN ×3 (00:15→20:04)
[2016-12-31] MEDS: CLINIMIX E 4.25%-5% SOLUTION 1,000 ML IV SCH ×4 (03:49→21:48)
[2016-12-31 06:20] LABS: MANUAL DIFF NEEDED? NO
[2016-12-31 06:31] LABS: BASO% 0.3 % (0.0-0.8); EOS# 0.13 X1000 (0.0-0.7); EOS% 0.9 % (0.0-10.0); HEMATOCRIT 28.3 % (42.0-52.0); HEMOGLOBIN 9.2 g/dL (14.0-18.0); IMM GRAN# 0.04 X1000 (0.0-0.04); IMM GRAN% 0.3 % (0.0-0.5); LYMPH# 1.03 X1000 (1.2-3.4); LYMPH% 7.5 % (20.5-51.1); MCH 29.8 PG (27-31); MCHC 32.5 g/dL (33-37); MCV 91.6 FL (81-99); MONO# 0.95 X1000 (0.11-0.59); MONO% 6.9 % (1.7-9.3); MPV 9.6 FL (7.4-10.4); NEUT% 84.1 % (42.2-75.2); PLT 399 X1000 (130-400); RBC 3.09 XMIL (4.7-6.1)
[2016-12-31 06:42] LABS: AGAP 13; ALKALINE PHOSPHATASE 59 U/L (32-122); BUN 30 mg/dL (8-22); CHLORIDE 97 mmol/L (98-107); COSMO 275; GOT 13 U/L (10-34); GPT 8 U/L (10-44); MAGNESIUM 2.2 mg/dL (1.5-2.7); POTASSIUM 4.5 mmol/L (3.5-5.1); SODIUM 134 mmol/L (136-145); TCO2 24 mmol/L (25-35); TOTAL BILIRUBIN 0.32 mg/dL (0.20-1.00); TOTAL PROTEIN 6.8 g/dL (6.3-8.3)
--- NOTE | 2016-12-31 13:38 | PROGRESS NOTE ---
DATE: 12/31/2016 Mr. Tabor states he feels pretty good. No pain at this time. 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 I discussed with Dr. Caro I do not feel he is an operative candidate and at this point, recommend that he go home with hospice just for palliative care. PHYSICAL EXAMINATION: Vital Signs: Temperature 98.5 degrees, pulse 100, respirations 20, blood pressure 151/64. INCOMPLETE REPORT - DICTATION ENDS HERE cc: Arash Fatima MD
--- NOTE | 2016-12-31 13:50 | PROGRESS NOTE ---
DATE: 12/31/2016 SUBJECTIVE: Mr. Tabor is comfortable. He is not hurting at the present time. He is eating a little bit. Initial pathology from his needle biopsy suggests soft tissue primary tumor. The question is whether it is a GIST or leiomyosarcoma or something like that. Await those studies. OBJECTIVE: Vital Signs: Temperature 98.5 degrees, pulse 100, respirations 20, blood pressure 151/64. Lungs: Clear in all lung ring. Cardiovascular: Regular rhythm and rate, without murmur or S3. Abdomen: Soft. Skin: Warm and dry. Abdomen: Soft. LABORATORIES: Reviewed from yesterday. Hematocrit 28, hemoglobin 9.2. Sodium 134, potassium 4.5, chloride 97, BUN 30, creatinine 0.7. ASSESSMENT AND PLAN: 1. Retroperitoneal mass needle biopsy. Final results still pending. Appears to be a soft tissue. I have discussed with Dr. Meneses. If this is a gastrointestinal stromal tumor, then there may be some potential treatment. We will go ahead and get Oncology involved. Await final pathology. 2. Blood loss anemia. Will continue to follow hemoglobin and hematocrit. 3. History of prostate cancer in the past. Aware. 4. Nutrition. He is eating a little better. I do not see any change in his orders right now. cc: Arash Fatima MD
[2016-12-31] MEDS: TYLENOL PO PRN ×2 (14:16→22:26)
--- NOTE | 2016-12-31 16:23 | PALLIATIVE CARE CONSULTATION ---
DATE: 12/31/2016 REQUESTING PHYSICIAN: Dr. Caro. REASON FOR CONSULTATION: Goals of care. HISTORY OF PRESENT ILLNESS: This is an 86-year-old, male with a past medical history of hypertension, heart valve replacement, and history of prostate cancer. He was most recently admitted on 12/22/2016 after presenting to the ED with complaints of fatigue, poor appetite, constipation, and low back pain. It was reported that he had been seen by his primary care twice within the last week as well as Cardiology and Neurology to determine the reason for his pain, however no reason was found. On admission, Mr. Tabor had a white cell count of 13.63, and a hemoglobin and hematocrit of 8.8 and 28.2. He was also have found to have a guaiac positive stool. CT scan of the abdomen and pelvis revealed retroperitoneal mass. The final biopsy reports are currently pending. Currently Mr. Tabor is sitting up in the bedside chair. He complains of weakness, complains of low back pain that he rates as a 6 on a 0-10 scale. He also complains of nausea. His is also at the bedside. She states that he requires considerable assistance with ambulation and his activities of daily living. She states that over the last 3 months she has noticed that he has become weaker and with a decline in his appetite. She states that he was driving up until 2 weeks ago. The palliative care team has been consulted to assist with goals of care. REVIEW OF SYSTEMS: A 12 point review of system has been conducted and otherwise negative except those mentioned in the HPI. PAST MEDICAL HISTORY: 1. Hypertension. 2. Heart valve replacement. 3. Prostate cancer. PAST SURGICAL HISTORY: 1. Valve replacement. 2. Prostatectomy. SOCIAL HISTORY: . He and his together have 7 children. Alcohol, tobacco and drug use have been denied. PHYSICAL EXAMINATION: General: This is an 86-year-old, male who does not appear to be in any acute distress. HEENT: Atraumatic, normocephalic. Neck: Supple. Cardiovascular: Regular rate and rhythm with murmur. Pulmonary: Lung sounds are diminished. Respirations are nonlabored. Abdomen: Soft. Bowel sounds are active. Extremities: Pulses are palpable. Neuro: He is alert and oriented to person, place and time. IMPRESSION: This is an 86-year-old, male with past medical history as listed above in the HPI. I met with Mr. Tabor's and his to discuss goals of care. Mrs. Tabor had questions regarding home hospice services as well as private duty sitter service. Both of those services were explained. Currently Mr. Tabor and his are waiting for a visit from Oncology to understand what if any treatment options are available. In regards to Mr. Tabor's pain, we will transition his pain medication to p.o. medication to help with the transition home. We also discussed advance directive and power of assistant prosecuting attorney. Mr. Tabor has stated that he does not want to be intubated or placed on mechanical ventilation, so a DNR level 2 order will be placed. He does state that he would want CPR, defibrillation or any medications to stimulate his heart or raise his blood pressure if needed. It appears that Mr. Tabor's palliative performance scale is 40%. The palliative care team will continue to follow. Thank you for this consultation. Dictated by SADIQ Pearson for Shankar Banks MD cc: SADIQ Pearson MD
--- NOTE | 2016-12-31 17:18 | PROGRESS NOTE ---
DATE: 12/31/2016 SUBJECTIVE: No more bleeding. No nausea, vomiting, minimal appetite no real abdominal pain. PHYSICAL EXAMINATION: Vital signs: Temperature is 97.5, pulse is 107, blood pressure 158/60. Oxygen saturation 97% on room air. Abdomen: Soft, nontender, nondistended. There is no palpable masses. Integument: Warm, dry. He is quite pale. Cardiovascular: Normal rate, regular rhythm. Pulmonary: No increased work of breathing. There is no jaundice. No lower extremity edema. Neurologic: Kind of a flat affect. Not really speaking much. LABORATORY: White count 13, hematocrit is up to 28 from 24 previous. Platelets are 399,000. Creatinine 0.7, calcium is elevated at 11. LFTs are normal. ASSESSMENT AND PLAN: This 86-year-old male with multiple intra-abdominal and retroperitoneal masses on the right side encasing vena cava, on the left, does appear to abut the proximal jejunum at the DJ junction, but it is unclear here also. He has undergone CT-guided percutaneous biopsy of these lesions and preliminary report apparently showed spindle cells. I do not have the formal report. It is being sent off for further testing to evaluate for sarcoma versus gastrointestinal stromal cell tumor. It does not appear to be lymphoma. He is not clinically obstructed, although there is a possibility that he has some degree of partial obstruction contributing to his decreased appetite, and he did present with melena, but no active ongoing bleeding noted. He has been scoped by Dr. Caro. No evidence of upper gastrointestinal lesion. I had a discussion with the family. From a surgical standpoint, he does not have an indication for operation. If this is a sarcoma, it is metastatic and aggressive and will likely not respond any further therapy and surgical intervention would be contraindicated. However, if this is the GIST tumor and it stains for C-kit on his final pathology, Gleevec therapy could potentially be well-tolerated and cause him significant improvement in size of these lesions. Although this would be palliative, it could prevent impending obstruction, although its role in stopping bleeding may not be as beneficial. Discussed this with the family. I do not see any need for surgical intervention at this time. Hospice and palliative medicine is discussed with the patient and the family seems to be leaning toward this, although they are open to other avenues as well, and Dr. Shultz has plans to see him as well. Again, long discussion with the family regarding this diagnosis, and how we still need more information to guide further therapy. Discussed with the that leiomyosarcoma would be a very grim prognosis in this advanced case, and a GIST tumor would not be a curable as it is surgically unresectable, but potentially treatable with Gleevec therapy, but will refer to Dr. Shultz for further details on this and plans regarding further therapy. We will continue to follow along and happy to answer any other questions that arise. cc: Arianna Meneses MD
[2016-12-31] MEDS: NORCO-7.5 PO PRN (18:12)
[2016-12-31] MEDS: D5 NS 1,000 ML IV SCH ×2 (19:33→21:49)
[2016-12-31] MEDS: SENOKOT PO SCH (20:04)
[2016-12-31] MEDS ORDERED: ZOMETA 4 MG in NS 100 ML IV ONE (23:00)
[2017-01-01 06:44] LABS: AGAP 11; ALBUMIN 3.3 g/dL (3.5-5.0); ALKALINE PHOSPHATASE 69 U/L (32-122); BUN 30 mg/dL (8-22); CALCIUM 11.1 mg/dL (8.8-10.2); CHLORIDE 100 mmol/L (98-107); COSMO 280; GOT 15 U/L (10-34); GPT 9 U/L (10-44); POTASSIUM 5.1 mmol/L (3.5-5.1); SODIUM 137 mmol/L (136-145); TCO2 26 mmol/L (25-35); TOTAL BILIRUBIN 0.29 mg/dL (0.20-1.00)
[2017-01-01] MEDS: CLINIMIX E 4.25%-5% SOLUTION 1,000 ML IV SCH ×2 (07:24→17:43)
[2017-01-01] MEDS: SENOKOT PO SCH ×2 (09:37→20:57)
[2017-01-01] MEDS: TYLENOL PO PRN (11:10)
[2017-01-01] MEDS ORDERED: LACTULOSE PO PRN (15:09)
--- NOTE | 2017-01-01 15:17 | PROGRESS NOTE ---
DATE: 01/01/2017 SUBJECTIVE: Mr. Tabor feels pretty good. Breathing comfortably. No nausea. He has been getting some food down. OBJECTIVE: Vital Signs: Temp 97.6 degrees, pulse 106, respirations 20, blood pressure 150/65. HEENT: Pupils were equal and round. CVP less than 6 cm. Neck: No distended neck veins. Lungs: Clear in all lung ring. Cardiovascular exam: Regular rhythm and rate without murmur or S3. Abdomen: Soft. Skin: Warm and dry. : Urine output appeared to be over 1600 mL. LAB: Reviewed from this morning: Sodium 137, potassium 5.1, chloride 100, BUN 30, creatinine 0.7. His calcium has come down to 11.1; it stayed around 11 or 12, and that is with an albumin of 3.3. ASSESSMENT AND PLAN: 1. Bilateral retroperitoneal mass appears to be soft tissue. Still awaiting definitive studies from [facility]. Dr. Meneses talked to him about possibly debulking especially the area that is compressing on the small intestine, but he is not a surgical candidate in the sense that we will be able to take the tumor out, and I think everybody agrees to that. Dr. Shultz has evaluated and wonders if he may be a candidate for Gleevec. 2. Blood-loss anemia. Hemoglobin and hematocrit were stable. Had an esophagogastroduodenoscopy. I found some gastritis, but no active bleeding. 3. History of prostate cancer in the past. 4. Poor oral nutrition. I think this is improving, improved oral intake. 5. Reviewing his current medications, I do not see any change. He did get some zoledronic 4 mg for hypercalcemia when he first came in. Calcium appears to be stable. cc: Arash Fatima MD
--- NOTE | 2017-01-01 16:25 | PALLIATIVE CARE PROGRESS NOTE ---
DATE: 01/01/2017 SUBJECTIVE: Mr. Tabor was sleeping on my arrival, but arouses easily. He denies pain, nausea, and shortness of breath. OBJECTIVE: General: This is an 86-year-old, male who does not appear to be in any acute distress. HEENT: Atraumatic, normocephalic. Neck: Trachea is midline. Cardiovascular: Regular rate and rhythm with murmur. Pulmonary: Lung sounds are diminished. Respirations are nonlabored. Abdomen: Soft. Bowel sounds are active. Extremities: Pulses are palpable. He does have 2+ pitting edema to bilateral lower extremities. Neuro: He is alert and oriented to person, place and time. ASSESSMENT AND PLAN: Mr. Tabor's is at bedside and states that they are awaiting the final results of the biopsy to help determine what the future treatment plan will be. As previously mentioned, Mr. Tabor does not have any acute complaints. He denies pain, nausea, and shortness of breath. The palliative care team will continue to follow. Dictated by SADIQ Pearson for Shankar Banks MD cc: SADIQ Pearson MD [facility]
[2017-01-01] MEDS: NORCO-7.5 PO PRN (20:57)
[2017-01-01] MEDS: HALDOL IM PRN (22:04)
[2017-01-02] MEDS: HALDOL IM PRN ×3 (02:02→17:27)
[2017-01-02] MEDS: CLINIMIX E 4.25%-5% SOLUTION 1,000 ML IV SCH ×2 (06:28→14:22)
[2017-01-02] MEDS: NORCO-7.5 PO PRN (09:05)
[2017-01-02] MEDS: SENOKOT PO SCH ×2 (09:05→22:10)
--- NOTE | 2017-01-02 15:30 | PROGRESS NOTE ---
DATE: 01/02/2017 SUBJECTIVE: Mr. Tabor remains afebrile. He is feeling better. No pain. He is eating some. OBJECTIVE: Vital Signs: Temperature 97.7 degrees, pulse 110, respirations 14, blood pressure 160/67. HEENT: Pupils are equal and round. Lungs: Clear. Cardiovascular: Regular rhythm and rate, without murmur or S3. URINE OUTPUT: Good urine output, over 3 L urine output from yesterday. LABORATORY: Laboratory from yesterday reviewed. Calcium is about 11.1. REVIEW OF CURRENT MEDICATION: Continue IV fluids. 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 Await final results from [facility]. If a gastrointestinal stromal tumor, then Gleevec would be an opportunity. Dr. Meneses has discussed possible debulking surgery down the road. The patient is eating a little better. Strength is a little better. Note that his blood counts remain stable, hemoglobin 9.2 and hematocrit 28. I do not see anything to change at this point. His p.o. intake has improved. We will give him some more fluids because of his calcium tonight. cc: Arash Fatima MD
[2017-01-02] MEDS: NS 1,000 ML IV SCH (18:30)
[2017-01-02] MEDS: TYLENOL PO PRN (22:10)
[2017-01-02] MEDS: DEMEROL IV PRN (22:10)
[2017-01-03] MEDS: CLINIMIX E 4.25%-5% SOLUTION 1,000 ML IV SCH ×2 (00:38)
[2017-01-03] MEDS: HALDOL IM PRN ×3 (03:31→20:56)
[2017-01-03] MEDS: NS 1,000 ML IV SCH (06:25)
[2017-01-03] MEDS ORDERED: LASIX IV ONE (10:07)
[2017-01-03] MEDS ORDERED: NS 1,000 ML IV SCH (10:15)
[2017-01-03] MEDS: SENOKOT PO SCH ×2 (10:26→20:57)
[2017-01-03 14:16] LABS: AGAP 15; ALBUMIN 3.5 g/dL (3.5-5.0); ALKALINE PHOSPHATASE 76 U/L (32-122); BUN 33 mg/dL (8-22); CALCIUM 10.6 mg/dL (8.8-10.2); CHLORIDE 93 mmol/L (98-107); COSMO 271; GOT 16 U/L (10-34); GPT 11 U/L (10-44); POTASSIUM 5.1 mmol/L (3.5-5.1); SODIUM 131 mmol/L (136-145); TCO2 23 mmol/L (25-35); TOTAL BILIRUBIN 0.51 mg/dL (0.20-1.00); TOTAL PROTEIN 6.4 g/dL (6.3-8.3)
--- NOTE | 2017-01-03 14:33 | Diag Imaging Result Document ---
PROCEDURE NAME: CHEST-PORTABLE - 01/03/2017 PORTABLE CHEST: COMPARISON: Compared 12/26/2016. FINDINGS: There is mild elevation of the left hemidiaphragm with left basilar atelectasis. This appears mildly decreased. The remainder of the lungs appear essentially clear of acute changes. There is a small granuloma from old granulomatous disease on the right. There is no pleural effusion or pneumothorax identified. Heart size appears within normal limits. IMPRESSION: Mild elevation of left hemidiaphragm with left basilar atelectasis, mildly decreased compared to prior. No other acute changes.
--- NOTE | 2017-01-03 14:44 | PROGRESS NOTE ---
DATE: 01/03/2017 SUBJECTIVE: Mr. Tabor had a little more trouble breathing. We have stopped his fluids, including his Clinimix and given him a dose of Lasix. He is still having confusion at night. The Haldol does not seem to be very effective, so I will increase the dose of Haldol. OBJECTIVE: Vital signs: His temperature is 98 degrees, pulse 98, respirations 18, blood pressure 150/68. Lungs: Are clear in all lung ring. Cardiovascular: Regular rhythm and rate without murmur or S3. Abdomen: Soft. Skin: Is warm and dry. : Good urine output with over 2200 mL. LABORATORY: White count from 12/31, 13,760, his hematocrit is 28, and his platelet count 399,000. Chemistries from the looked pretty good. I am going to recheck those again today and see where we are, especially with this calcium. ASSESSMENT AND PLAN: 1. Bilateral retroperitoneal mass. Awaiting studies. Possibility that it could be a GIST soft tissue tumor and maybe it will respond to Gleevec. Also need to arrange for what we going to do when we go home. He wants to go home with hospice and they could have some suitable help. There was some talk about debulking the left tumor if it is pressing on the small intestine. We will discuss this with Dr. Shultz and Dr. Gerson Meneses. 2. Blood-loss anemia. Hemoglobin and hematocrit stable. 3. History of prostate cancer in the past. 4. Poor oral intake. Poor nutrition. Not much appetite. 5. Weakness and deconditioning with some underlying dementia. Still having some delirium and confusion, especially at night. Continue to try and use the Haldol. We may need to discuss his discharge plans and get those in order. Still awaiting some results from [facility]. cc: Arash Fatima MD
[2017-01-04] MEDS: HALDOL IM PRN ×3 (01:40→12:40)
[2017-01-04] MEDS ORDERED: LASIX IV ONE (02:31)
--- NOTE | 2017-01-04 06:38 | Diag Imaging Result Document ---
PROCEDURE NAME: CHEST-PORTABLE - 01/04/2017 PORTABLE UPRIGHT AP CHEST: COMPARISON: Compared to 01/03/2017. FINDINGS: Sternal wires are present. Poor inspiratory effort. The heart is not enlarged. There is atelectasis versus a small infiltrate in the left base. The right lung remains clear. IMPRESSION: Stable chest.
[2017-01-04 06:46] LABS: ALLEN TEST YES; BLOOD TYPE ARTERIAL; DRAW SITE R RADIAL; METHB 2.1 % (0.0-1.5); O2(CT) 12.3 mL/dL (15.0-23.0); PO2(98.6) 96 mmHg (60-100); SAMPLE BLOOD; SAO2 99.2 % (95.0-100.0); THB 9.1 g/dL (11.5-17.4); pH(98.6) 7.23 (7.35-7.45)
[2017-01-04 06:48] LABS: MODALITY VENTIMASK; PCO2(98.6) 73 mmHg (35-45)
[2017-01-04] MEDS: SENOKOT PO SCH (09:40)
[2017-01-04] MEDS ORDERED: HALDOL IV PRN (12:46)
[2017-01-04] MEDS ORDERED: MORPHINE IV PRN (12:47)
[2017-01-04 15:21] VITALS: BP 151/59
--- NOTE | 2017-01-04 15:39 | PROGRESS NOTE ---
DATE: 01/04/2017 SUBJECTIVE: Mr. Tabor had some confusion last night. Had more trouble breathing. Coughing up thick copious sputum. Respiratory suction them. Did a set of blood gases but his pH was 7.23, pCO2 73, PO2 96, O2 saturation was 94%. I am concerned he may have had some aspiration. Put him on BiPAP. He is really not eating much at all. SUBJECTIVE: Vital signs: Temperature 97.5 degrees, pulse 117, respirations 16, blood pressure 166/52. Neck: CVP less than 6 cm. Lungs: Clear in all lung ring. Cardiovascular: Regular rhythm and rate without murmur or S3. Actually urine output looks like it is 459 mL. Serum creatinine was 0.7. We did do a chest x-ray this morning. Stable chest. Did not see any sign of infiltrate. ASSESSMENT AND PLAN: Retroperitoneal tumor. Appears to be soft tissue mass. Still awaiting results from [facility]. I do not think he will be a candidate for any effective therapy with question is whether Gleevec would add anything to it. I do not think he would survive any debulking surgery. Concerned about his turn for the worse. He is not eating. His is poor. P.O. intake is poor. Now appears he probably had some aspiration pneumonitis, at least chemical aspiration. Will continue his BiPAP. I have discussed with family the plans. Suspect we will end up going home with hospice care. Review of his orders. I do not see any change at this point. is questioning whether she wants to continue the BiPAP. He still has confusion and just about have to tie his hands down. She understands we may be just be going for comfort measures. We will also discuss with Dr. Shultz, Dr. Caro, and Dr. Meneses. cc: Arash Fatima MD
--- NOTE | 2017-01-04 20:32 | PALLIATIVE CARE PROGRESS NOTE ---
DATE: 01/04/2017 SUBJECTIVE: It appears that Mr. Tabor has had a significant decline over the weekend. He is having some trouble breathing and now on the BiPAP. He is also having periods of confusion and agitation. His is at the bedside. OBJECTIVE: General: This is an 86-year-old, chronically ill-appearing male who appears in respiratory distress. HEENT: Atraumatic, normocephalic. Cardiovascular: Increased rate, regular rhythm with a murmur. Pulmonary: Lung sounds are diminished with crackles auscultated bilaterally. Respirations are slightly labored. Abdomen: Soft. Skin: Warm and dry. Extremities: He does have some pitting edema to bilateral lower extremities. Pulses are palpable. ASSESSMENT AND PLAN: I spoke with Ms. Tabor regarding Mr. Tabor's decline in overall health status. She has decided to transition him to comfort measures only. I have placed an order for inpatient hospice consult. I will also add morphine to help relieve his air hunger as well as increase the frequency of his Haldol to help with his agitation. Ms. Tabor has also made decision to make Mr. Tabor a Do Not Resuscitate level 1. That order will be placed as well. It appears now that Mr. Tabor's palliative performance scale is 20%. The Palliative Care Team will continue to follow. Dictated by SADIQ Pearson for Sahnkar Banks MD cc: SADIQ Pearson MD
== END 2017-01-04 17:12 | disposition hospice, inpatient (51) ==
LOC: 4N 10:57 → P.ED 10:57 → OBSVTOIN 16:00 → SUATTDRO 16:00 → 4N 18:33
PROVIDERS: ATTEND Emergency Medicine

== ENCOUNTER 2017-01-04 17:16 | Inpatient (IN) ==
[2017-01-04] MEDS ORDERED: ATIVAN PO PRN (17:43)
[2017-01-04] MEDS ORDERED: TYLENOL PR PRN (17:44)
[2017-01-04] MEDS ORDERED: ZOFRAN IV PRN (17:44)
[2017-01-04] MEDS ORDERED: HALDOL IM PRN (17:45)
[2017-01-04] MEDS ORDERED: NORCO-7.5 PO PRN (17:45)
[2017-01-04] MEDS: MORPHINE IV PRN ×3 (18:55→22:09)
[2017-01-05] MEDS: MORPHINE IV PRN ×8 (00:23→22:26)
--- NOTE | 2017-01-05 15:19 | PROGRESS NOTE ---
DATE: 01/05/2017 SUBJECTIVE: Today Mr. Tabor continues to be stable. I saw the stepdaughter and step grandson in the room at the time of the encounter. According to them Mr. Tabor is as comfortable as they want him to be. To my understanding, Mr. Tabor is inpatient hospice for advanced mass in the abdomen presumed to be malignant with metastases. We are still pending the pathology report. I called this morning and it was still not ready. OBJECTIVE: Vitals. Blood pressure is 123/48, pulse of 105, respiration is 15, temperature 98.6 degrees. Physical exam is unchanged. Mr. Tabor continues to be altered, barely responsive to any painful stimulation. Pupils cannot pinpoint and sluggishly reactive. The left leg is also cold to touch and pulses are extremely diminished on that foot. ASSESSMENT: 1. 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 We are still pending the pathology report but at this point patient is hospice. 2. Altered mental status due toxic metabolic encephalopathy. 3. Hospice care. PLAN: In general Mr. Tabor he is currently inpatient hospice being followed up by [facility]. Will continue addressing his symptoms and keeping him as comfortable as possible. Pathology report is still pending on the biopsy of the intraabdominal mass. cc: Steve Jones MD
[2017-01-06] MEDS: MORPHINE IV PRN ×4 (06:20→21:49)
--- NOTE | 2017-01-06 15:48 | PROGRESS NOTE ---
DATE: 01/06/2017 Today Mr. Tabor continues to be under hospice care. Mrs. Tabor was in the room as well as some other 2 family members. They did not express any immediate need. They think Mr. Tabor is as comfortable as they want him to be. OBJECTIVE: Vital signs: Blood pressure is 140/47, pulse is 104, respirations 16, temperature is 98.7 degrees. Physical Exam: Relatively unchanged mentation corona. He barely moves extremities to painful stimulation. ASSESSMENT: 1. Intra-abdominal mass suspicious for sarcoma versus lymphoma. 2. Metastatic cancer. 3. Altered mental status due to toxic metabolic encephalopathy. 4. Hospice care. Our plan will be to continue with the current hospice care. cc: Steve Jones MD
[2017-01-07] MEDS: MORPHINE IV PRN ×3 (01:41→09:32)
[2017-01-07] MEDS ORDERED: ROXANOL CONC. LIQUID PO PRN (09:54)
[2017-01-07] MEDS ORDERED: ATIVAN IV PRN (09:58)
[2017-01-07] MEDS ORDERED: TRANSDERM-SCOP TD ONE (10:43)
--- NOTE | 2017-01-07 16:34 | PROGRESS NOTE ---
DATE: 01/07/2017 SUBJECTIVE: Today Mr. Tabor continues to be stable. More labored than days before. OBJECTIVE: Vital signs: Blood pressure is 126/43, pulse of 90, respirations 18 , temperature is 98.4 degrees. General: Mr. Tabor is an 86-year-old male. He was in bed. He was in mild respiratory distress. HEENT: Mucosa is pink and moist. Chest: Has diffuse bilateral coarse crackles. Cardiovascular: Regular rate and rhythm. Abdomen: Soft. PULP BLEACHER: Patient is completely obtunded and nonresponsive to any stimulation. ASSESSMENT: 1. Intra-abdominal mass suspicious for sarcoma versus lymphoma. 2. Metastatic cancer. 3. Altered mental status due toxic metabolic encephalopathy. 4. Hospice care. PLAN: Today I think Mr. Tabor was having issues with his line. He was having fluid retention so changes were made to his medication and will be using the sublingual morphin. Will also use scopolamine to help with the oral secretions and will also follow up with further recommendations from the hospice team. I think Mr. Tabor is now showing active signs of dying and I think he will probably later on today or early tomorrow. cc: Steve Jones MD MTDD
[2017-01-07 20:06] VITALS: BP 147/34
--- NOTE | 2017-01-08 18:57 | DISCHARGE SUMMARY ---
ADMISSION DATE: 01/04/2017 DISCHARGE DATE: 01/07/2017 SUMMARY DATE OF : 01/07/2017. TIME OF : 20:25. ADMISSION DIAGNOSES: 1. Left lower lobe atelectasis versus bronchopneumonia. 2. Leukocytosis. 3. Bilateral soft tissue masses in abdomen. 4. Hypercalcemia. 5. Anemia. DIAGNOSES AT TIME OF : 1. Intra-abdominal mass suspicious for sarcoma versus lymphoma. I just got a call from Pathology today and it looks to him as a sarcoma. 2. Altered mental status due to toxic metabolic encephalopathy. 3. Malignant hypercalcemia improved. 4. Hospice care. PRESENTING COMPLAINT: Abdominal pain, constipation. HISTORY OF PRESENTING COMPLAINT: Mr. Tabor is an 86-year-old male with a history of high blood pressure who has been complaining of generalized fatigue, poor appetite and constipation for 3 days. He went to the emergency department at [facility] for those symptoms and was found to have atelectasis versus bronchopneumonia on a CT scan. His calcium was 12.2 on admission. The patient was subsequently admitted for further workup. The patient was transferred from [facility] here for further higher medical care. HOSPITAL COURSE: During the hospital stay a biopsy was done. Patient was seen by multiple subspecialties including HEM/ONC. A biopsy was done. The patient did not actually get the results until the time of his . 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 They are still working on certain stains. Mr. Tabor did not progress satisfactorily during this short hospital course. The family members subsequently requested that he be made comfortable so Hospice was consulted. Patient was seen by the Hospice team. He deteriorated progressively and went into hospice in the hospital. Last night about 20:25 patient was found with no signs of vitality. There was asystolic flat line on the cardiac monitoring. Two nurses went and evaluated the patient, and he was subsequently pronounced . cc: Steve Jones MD MTDD
== END 2017-01-07 20:25 | disposition expired ==
LOC: 4N 17:16 → SUATTDRO 17:16 → 3N 18:05
PROVIDERS: ATTEND Internal Medicine